=== PATIENT | male | born 1980 | race Caucasian/White ===

== ENCOUNTER 2016-04-14 06:07 | Emergency (ER) | payer OTHER, BC ==
[~2016-04-14] VITALS: Ht 172.7 cm; Wt 74.6 kg
[2016-04-14 06:12] VITALS: TEMP 36.5; Ht 172.7 cm; Wt 74.6 kg
--- NOTE | 2016-04-14 07:37 | EMERGENCY ROOM VISIT NOTE ---
History Report prepared by Lilia: Alisa Morfin Under the Supervision of: Dr. Huey Resendez M.D. First contact with patient: 06:34 Chief Complaint: FOOT PAIN Stated Complaint: FOOT PAIN History of Present Illness The patient is a 36 year old male who presents to the Emergency Room with complaints of persistent right greater than left foot pain after a metal plate fell on his feet this morning at 0430. He currently rates his discomfort as a 6/ 10 in severity. The patient states that he normally has edema in the bilateral lower extremities, but states that it has become considerably worse since the accident. The pain does not radiate to his ankle and he has no pain or injury elsewhere in his body. Source of History: patient Onset: 0430 this morning Position: foot (right greater than left) Symptom Intensity: 6/10 Timing: other (persistent) Note: Associated Symptoms: worsened edema to bilateral lower extremities Review of Systems All systems have been listed, reviewed, and are negative other than those previously mentioned. Please see Additional Medical History Sheet. Past Medical & Surgical Surgical Problems: (1) S/P surgery on nasal septum Family History Cancer Diabetes mellitus Hypertension Social History Smoking Status: Current Every Day Smoker Alcohol Use: occasionally Marital Status: single Housing Status: lives with family Occupation Status: employed Current/Historical Medications No Active Prescriptions or Reported Meds Allergies Coded Allergies: No Known Allergies (Unverified , 04/14/16) Physical Exam Vital Signs Date Time Temp Pulse Resp B/P Pulse Ox O2 Delivery O2 Flow Rate FiO2 04/14/16 08:00 71 16 147/95 98 Room Air 04/14/16 06:12 36.5 92 18 155/103 97 Room Air Physical Exam GENERAL: Patient awake, alert, in mild distress SKIN: No erythema, pallor, cyanosis or rash HEENT: Normal head, pupils equal, reactive to light and accommodation. Neck: Without adenopathy, no neck vein distention. LUNGS: Clear to auscultation. No wheezes, no rales, no rhonchi. HEART: No murmurs. No gallops. No rubs ABDOMEN: Soft, nontender. EXTREMITIES: Swelling and tenderness on dorsum of right foot. Slight erythema. Sensation, circulation, and motor function intact in toes. Ankle is nontender. NEUROLOGIC: Cranial nerves II-XII within normal limits. No gross motor sensory function deficits. Medical Decision & Procedures ER Provider Diagnostic Interpretation: X ray results are stated below per my interpretation and the radiologist's interpretation. RIGHT FOOT 3 VIEWS CLINICAL HISTORY: Crushing injury. FINDINGS: 3 views of the right foot are obtained. No prior studies are available for comparison at the time of dictation. The skeletal structures are well mineralized. There is marked dorsal soft tissue edema. Nondistracted fractures are identified involving the distal shaft of the first metatarsal as well as the neck of the second metatarsal. No distraction is identified. No additional fracture is seen. Joint spaces of the foot are well-maintained. IMPRESSION: Marked dorsal soft tissue edema with nondistracted fractures involving the distal shaft of the first metatarsal and the neck of the second metatarsal. Electronically signed by: Nando Kent M.D. 04/14/2016 7:40 AM ED Course 0637: Past medical records reviewed. The patient was evaluated in room B3. A complete history and physical examination was performed. 0741: I reevaluated the patient and he is doing well. I discussed the exam findings with him and he is going to get a postop shoe. I discussed the treatment plan with him and he verbalized complete understanding and agreement. He is ready to go home. Medical Decision Nurses notes reviewed. Medical history sheet reviewed. Differential diagnosis includes but is not limited to: contusion, fracture, dislocation, subluxation. The patient has some underlying swelling of both feet chronically but today the swelling of the right foot is worse. X-ray does not reveal fracture dislocation or subluxation. The patient appears to have a contusion with increased swelling. The patient was fitted with a postop shoe and offered crutches as an option. The patient will be off work for 3 days. He is to take ibuprofen as needed for pain. Impression Primary Impression: Contusion of foot Scribe Attestation The scribe's documentation has been prepared under my direction and personally reviewed by me in its entirety. I confirm that the note above accurately reflects all work, treatment, procedures, and medical decision making performed by me. Departure Information Dispostion Home / Self-Care Prescriptions No Active Prescriptions or Reported Meds Referrals Roel Ulrich M.D. (PCP) Forms HOME CARE DOCUMENTATION FORM, IMPORTANT VISIT INFORMATION, Work Instructions Patient Instructions My [facility] Additional Instructions 600 mg ibuprofen every 6 hours as needed for pain. Limited weight-bearing. Crutches as needed. Off work for the next 3 days. Follow-up with orthopedics in one week if symptoms are not resolving.
--- NOTE | 2016-04-14 07:41 | DIAGNOSTIC IMAGING REPORT ---
RIGHT FOOT 3 VIEWS CLINICAL HISTORY: Crushing injury. FINDINGS: 3 views of the right foot are obtained. No prior studies are available for comparison at the time of dictation. The skeletal structures are well mineralized. There is marked dorsal soft tissue edema. Nondistracted fractures are identified involving the distal shaft of the first metatarsal as well as the neck of the second metatarsal. No distraction is identified. No additional fracture is seen. Joint spaces of the foot are well-maintained. IMPRESSION: Marked dorsal soft tissue edema with nondistracted fractures involving the distal shaft of the first metatarsal and the neck of the second metatarsal. Electronically signed by: Nando Kent M.D. 04/14/2016 7:40 AM Dictated Date/Time: 04/14/2016 7:37 AM
[2016-04-14 08:00] VITALS: BP 147/95; PULSE 71; O2SAT 98
== END 2016-04-14 08:16 | disposition home or self-care (01) ==
LOC: C.EDB 06:08
DX: S90.31XA Contusion of right foot, initial encounter (principal); W22.8XXA Striking against or struck by other objects, initial encounter; F17.210 Nicotine dependence, cigarettes, uncomplicated